=== PATIENT | male | born 1955 | race Caucasian/White ===

== ENCOUNTER 2021-03-06 09:19 | Outpatient (REF) | payer OTHER, SELFPAY ==
--- NOTE | ~2021-03-06 | XR_ITS ---
EXAMINATION: XR KNEE STANDING BILATERAL XR KNEE, RIGHT XR KNEE, LEFT CLINICAL INFORMATION: Bilateral knee pain COMPARISON: 11/16/2012 TECHNIQUE: AP standing view both knees Right knee, sunrise and lateral views Left knee, sunrise and lateral views FINDINGS: AP standing view: There are marginal osteophytes at the degenerated medial and lateral tibiofemoral compartments of both knees. Chondrocalcinosis of the lateral meniscus of the right knee. On the right, there is chronic, severe loss of the medial tibiofemoral joint space with genu varus deformity. At the left knee, there is worsening, now severe loss of the medial joint space with genu varus deformity. Right knee: No fracture, subluxation or joint effusion. There are marginal osteophytes of the chronically degenerated patellofemoral compartment. Left knee: No fracture, subluxation or joint effusion. There are marginal osteophytes of the chronically degenerated patellofemoral compartment. XR/XR knee standing BI IMPRESSION: Tricompartment osteoarthritis of both knees. The osteoarthritis is worst at the medial tibiofemoral compartments where there is severe loss of the joint space and bilateral genu varus deformity. The medial joint space narrowing of the left knee has worsened compared to 11/16/2012.
--- NOTE | ~2021-03-06 | XR_ITS ---
EXAMINATION: XR KNEE STANDING BILATERAL XR KNEE, RIGHT XR KNEE, LEFT CLINICAL INFORMATION: Bilateral knee pain COMPARISON: 11/16/2012 TECHNIQUE: AP standing view both knees Right knee, sunrise and lateral views Left knee, sunrise and lateral views FINDINGS: AP standing view: There are marginal osteophytes at the degenerated medial and lateral tibiofemoral compartments of both knees. Chondrocalcinosis of the lateral meniscus of the right knee. On the right, there is chronic, severe loss of the medial tibiofemoral joint space with genu varus deformity. At the left knee, there is worsening, now severe loss of the medial joint space with genu varus deformity. Right knee: No fracture, subluxation or joint effusion. There are marginal osteophytes of the chronically degenerated patellofemoral compartment. Left knee: No fracture, subluxation or joint effusion. There are marginal osteophytes of the chronically degenerated patellofemoral compartment. XR/XR knee LT 2V IMPRESSION: Tricompartment osteoarthritis of both knees. The osteoarthritis is worst at the medial tibiofemoral compartments where there is severe loss of the joint space and bilateral genu varus deformity. The medial joint space narrowing of the left knee has worsened compared to 11/16/2012.
--- NOTE | ~2021-03-06 | XR_ITS ---
EXAMINATION: XR KNEE STANDING BILATERAL XR KNEE, RIGHT XR KNEE, LEFT CLINICAL INFORMATION: Bilateral knee pain COMPARISON: 11/16/2012 TECHNIQUE: AP standing view both knees Right knee, sunrise and lateral views Left knee, sunrise and lateral views FINDINGS: AP standing view: There are marginal osteophytes at the degenerated medial and lateral tibiofemoral compartments of both knees. Chondrocalcinosis of the lateral meniscus of the right knee. On the right, there is chronic, severe loss of the medial tibiofemoral joint space with genu varus deformity. At the left knee, there is worsening, now severe loss of the medial joint space with genu varus deformity. Right knee: No fracture, subluxation or joint effusion. There are marginal osteophytes of the chronically degenerated patellofemoral compartment. Left knee: No fracture, subluxation or joint effusion. There are marginal osteophytes of the chronically degenerated patellofemoral compartment. XR/XR knee RT 2V IMPRESSION: Tricompartment osteoarthritis of both knees. The osteoarthritis is worst at the medial tibiofemoral compartments where there is severe loss of the joint space and bilateral genu varus deformity. The medial joint space narrowing of the left knee has worsened compared to 11/16/2012.
== END 2021-03-06 09:20 | disposition home or self-care (01) ==
LOC: HO.HOSX 09:19
PROVIDERS: Visit Provider Orthopaedic Surgery
DX: M17.0 Bilateral primary osteoarthritis of knee (principal)
CPT/HCPCS: 73560; 73565; 99202

== ENCOUNTER 2021-03-06 10:16 | Outpatient (REF) | payer OTHER, SELFPAY ==
[2021-03-06 10:41] LABS: MANUAL DIFF FLAG NO
[2021-03-06 10:49] LABS: Basophils Percent Auto 0.9 % (0-2); Eosinophils Absolute Auto 0.1 X10*3/uL (0.0-0.4); Eosinophils Percent Auto 2.1 % (0-4); Hematocrit 42.5 % (42-52); Hemoglobin 14.4 g/dl (14.0-18.0); Imm Gran Abs Auto 0.01 X10*3/uL (0.00-0.03); Imm Gran Pct Auto 0.2 % (0.0-0.4); Lymphocytes Absolute Auto 1.1 X10*3/uL (1.2-4.9); Mean Corpuscular HGB Conc 33.9 g/dl (31.0-36.0); Mean Corpuscular Volume 88.5 fL (80-98); Monocytes Absolute Auto 0.5 X10*3/uL (0.1-1.2); Neutrophils Absolute Auto 2.7 X10*3/uL (2.0-8.3); Neutrophils Percent Auto 61.8 % (45-73); Platelet Count 217 X10*3/uL (160-400); Red Cell Distribution Width 13.5 % (11.0-16.0); White Blood Count 4.4 X10*3/uL (4.8-10.8)
[2021-03-06 11:11] LABS: Alanine Aminotransferase 20 U/L (0-40); Alkaline Phosphatase 64 U/L (39-117); Anion Gap 10 (12-20); Aspartate Amino Transferase 18 U/L (5-37); Bilirubin Total 0.5 mg/dL (0.0-1.0); Blood Urea Nitrogen 14 mg/dL (9-16); Carbon Dioxide 26 mmol/L (22-29); Chloride 108 mmol/L (96-108); Cholesterol 177 mg/dL; Estimated Glomerular Filt Rate > 60; Glucose Fasting 104 mg/dL (60-99); HDL Cholesterol 46 mg/dL; LDL Cholesterol Calculated 112 mg/dl; Potassium 4.2 mmol/L (3.3-5.1); Sodium 140 mmol/L (135-145); Total Protein 6.5 g/dL (6.5-8.0); Triglycerides 99 mg/dL
== END 2021-03-06 10:17 | disposition home or self-care (01) ==
LOC: HO.LAB 10:16
PROVIDERS: PCP Internal Medicine; Visit Provider Internal Medicine
DX: Z00.00 Encounter for general adult medical examination without abnormal findings (principal); E11.9 Type 2 diabetes mellitus without complications
CPT/HCPCS: 36415; 80053; 80061; 85025

== ENCOUNTER 2022-02-22 08:50 | Outpatient (REF) | payer OTHER, SELFPAY ==
[2022-02-22 09:18] LABS: MANUAL DIFF FLAG NO
[2022-02-22 09:27] LABS: Basophils Percent Auto 0.8 % (0-2); Eosinophils Absolute Auto 0.1 X10*3/uL (0.0-0.4); Eosinophils Percent Auto 2.2 % (0-4); Hematocrit 45.6 % (42.0-52.0); Hemoglobin 15.3 g/dl (14.0-18.0); Imm Gran Abs Auto 0.01 X10*3/uL (0.00-0.03); Imm Gran Pct Auto 0.2 % (0.0-0.4); Lymphocytes Percent Auto 21.2 % (20-40); Mean Corpuscular HGB Conc 33.6 g/dl (31.0-36.0); Mean Corpuscular Hemoglobin 29.8 pg (27.0-33.0); Mean Corpuscular Volume 88.7 fL (80.0-98.0); Mean Platelet Volume 9.4 fL (9.4-12.4); Monocytes Absolute Auto 0.5 X10*3/uL (0.1-1.2); Monocytes Percent Auto 9.2 % (2-11); Neutrophils Absolute Auto 3.3 x10*3/uL (2.0-8.3); Neutrophils Percent Auto 66.4 % (45-73); Platelet Count 237 X10*3/uL (160-400); Red Blood Count 5.14 X10*6/uL (4.60-5.80); Red Cell Distribution Width 13.4 % (11.0-16.0); White Blood Count 4.9 X10*3/uL (4.8-10.8)
[2022-02-22 09:52] LABS: Alanine Aminotransferase 21 U/L (0-40); Albumin Level 4.3 g/dL (3.5-5.0); Alkaline Phosphatase 61 U/L (39-117); Anion Gap 10 (12-20); Aspartate Amino Transferase 22 U/L (5-37); Bilirubin Total 0.6 mg/dL (0.0-1.0); Blood Urea Nitrogen 14 mg/dL (9-16); Calcium 8.9 mg/dL (8.4-10.2); Carbon Dioxide 28 mmol/L (22-29); Chloride 105 mmol/L (96-108); Cholesterol 208 mg/dL; Estimated Glomerular Filt Rate > 60; Glucose Fasting 111 mg/dL (60-99); HDL Cholesterol 48 mg/dL; LDL Cholesterol Calculated 140 mg/dl; Potassium 4.3 mmol/L (3.3-5.1); Sodium 139 mmol/L (135-145); Total Protein 6.9 g/dL (6.5-8.0); Triglycerides 104 mg/dL
== END 2022-02-22 08:51 | disposition home or self-care (01) ==
LOC: HO.LAB 08:50
PROVIDERS: PCP Internal Medicine; Visit Provider Internal Medicine
DX: Z13.0 Encounter for screening for diseases of the blood and blood-forming organs and certain disorders involving the immune mechanism (principal); I10 Essential (primary) hypertension; E78.5 Hyperlipidemia, unspecified
CPT/HCPCS: 36415; 80053; 80061; 85025

== ENCOUNTER 2022-10-13 09:13 | Outpatient (REF) | payer MEDICARE, SELFPAY ==
--- NOTE | ~2022-10-13 | XR_ITS ---
EXAMINATION: XR BILATERAL KNEE CLINICAL INFORMATION: Pain in bilateral knee. COMPARISON: None. TECHNIQUE: 2 views of each knee. FINDINGS: LEFT KNEE: There is loss of medial and patellofemoral compartment joint space with superior patellar spurring. Mild chondrocalcinosis of medial compartment is noted. No loose bodies, acute fracture or dislocation is seen. No abnormal suprapatellar joint effusion seen. RIGHT KNEE: There is severe loss of medial and patellofemoral compartment joint space with moderate periarticular spurring. There is chondrocalcinosis of medial and lateral meniscus. Mild suprapatellar spurring seen. No joint effusion or loose body seen. XR/XR knee LT 2V IMPRESSION: 1. Degenerative arthritic changes of medial and patellofemoral compartment of both knees. No visible acute fracture or dislocation seen. 2. There is chondrocalcinosis of the medial and lateral meniscus right knee and medial meniscus left knee. No loose bodies or joint effusion seen.
--- NOTE | ~2022-10-13 | XR_ITS ---
EXAMINATION: XR BILATERAL KNEE CLINICAL INFORMATION: Pain in bilateral knee. COMPARISON: None. TECHNIQUE: 2 views of each knee. FINDINGS: LEFT KNEE: There is loss of medial and patellofemoral compartment joint space with superior patellar spurring. Mild chondrocalcinosis of medial compartment is noted. No loose bodies, acute fracture or dislocation is seen. No abnormal suprapatellar joint effusion seen. RIGHT KNEE: There is severe loss of medial and patellofemoral compartment joint space with moderate periarticular spurring. There is chondrocalcinosis of medial and lateral meniscus. Mild suprapatellar spurring seen. No joint effusion or loose body seen. XR/XR knee RT 2V IMPRESSION: 1. Degenerative arthritic changes of medial and patellofemoral compartment of both knees. No visible acute fracture or dislocation seen. 2. There is chondrocalcinosis of the medial and lateral meniscus right knee and medial meniscus left knee. No loose bodies or joint effusion seen.
== END 2022-10-13 09:14 | disposition home or self-care (01) ==
LOC: HO.XRAY 09:13
PROVIDERS: PCP Internal Medicine; Visit Provider Internal Medicine
DX: M25.561 Pain in right knee (principal); M25.562 Pain in left knee
CPT/HCPCS: 73560

== ENCOUNTER 2023-03-17 09:57 | Outpatient (AMB) | payer MEDICARE, SELFPAY ==
[2023-03-17 09:58] VITALS: BP 138/88; PULSE 60; O2SAT 99; BMI 32.7
--- NOTE | 2023-03-17 09:58 | AM.OFFVISMDC ---
Intake Vital Signs 03/17/23 09:58 Height 5 ft 7 in Weight 209 lb BMI 32.7 BP 138/88 Blood Pressure Location Lt brachial Position Sitting Pulse 60 Pulse Source Pulse Oximeter Temp Source Skin Pulse Oximetry (%) 99 Oxygen Delivery Method Room Air Intake Visit Reasons: AWV Intake Note: Patient is here for an Annual Wellness Visit. 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 Mother No problems noted. Social History Housing: House Alcohol intake: never Patient Tobacco Use Status: Never used Tobacco e-Cigarette/Vaping Use: Never Used Second Hand Smoke Exposure: No service: No Current occupational status: employed Cognitive needs: No Hearing needs: No Vision needs: Yes (reading glasses) Questionnaire Medicare Wellness Checkup [age] What gender do you identify with?: male During the past 4 weeks, how much have you been bothered by emotional problems such as feeling anxious, depressed, irritable, sad or downhearted, and blue?: not at all During the past 4 weeks, has your physical & emotional health limited your social activities with family, friends, neighbors, or groups?: not at all During the past 4 weeks, how much bodily pain have you generally had?: no pain During the past 4 weeks, was someone available to help you if you needed & wanted help?: yes, as much as I wanted During the past 4 weeks, what was the hardest physical activity you could do for at least 2 minutes?: very heavy Can you get to places out of walking distance without help? (For eg., can you travel alone on buses, taxis or drive your car?): Yes Can you go shopping for groceries or clothes without someone's help?: Yes Can you prepare your own meals?: Yes Can you do your housework without help?: Yes Because of any health problems, do you need the help of another person with your personal care needs such as eating, bathing, dressing or getting around the house?: No Can you handle your own money without help?: Yes During the past 4 weeks, how would you rate your health in general?: excellent During the past 4 weeks how have things been going for you?: very well; could hardly better Are you having difficulties driving your car?: yes, often Do you always fasten your seat belt when you are in a car?: yes, usually During past 4 weeks, have you been bothered by the following: never: Falling or dizzy when standing up, Sexual problems?, Trouble eating well?, Teeth or denture problems?, Problems using the telephone? and Tiredness or fatigue? Have you fallen 2 or more times in the past year?: No Are you afraid of falling?: No Are you a smoker?: no During the past 4 weeks, how many drinks of wine, beer, or other alcoholic beverages did you have?: no alcohol at all Do you exercise for about 20 minutes 3 or more times a week?: yes, all the time Have you been given information to help with the following?: yes: Hazards in your house that might hurt you? and yes: Keeping track of your medications? How often do you have trouble taking medicines the way you have been told to take them?: I always take medicine as prescribed How confident are you that you can control & manage most of your health problems?: very confident What is your race?: or origin or descent Mini Mental State Exam (MMSE) Orientation What is the (year) (season) (date) (day) (month)?: year, season, date, day and month Where are we (state) (county) (town or city) (hospital) (floor)?: state, county, town or city, hospital/clinic and floor Registration Name of 3 unrelated objects clearly and slowly, then ask patient to repeat all 3 of them. (1st repeat determines score. Make sure they can repeat all three): object 1, object 2 and object 3 Attention & Calculation (CHOOSE ONE) Ask pt to begin with 100 & count backward by 7. Stop after 5 repeats. If pt cannot ask them to spell the word WORLD backward.: 79 Spell WORLD backwards (DLROW): 5 letters Recall Ask patient to repeat the 3 items from question #3.: object 1, object 2 and object 3 Score Score: 22 Activity of Daily Living Bathing - sponge bath, tub bath or shower: receives no assistance (gets in/out by self, if usual bathing means Dressing - getting clothes from closets & drawers, including inner/outer garments & fasteners.: gets clothes & gets completely dressed without help Toileting - going to the 'toilet room' for urine/bowel elimination & cleaning self/arranging clothes: goes to toilet room, cleans self, arranges clothes without help Transfer: moves in & out of bed and chair without help (may use support object) Continence: controls urination/bowel movements completely by self Feeding: feeds self without help Total Score: 0 Information obtained from: patient Using telephone: independent Traveling: independent Shopping: independent Preparing meals: independent Housework: independent Taking medicine: independent Managing money: independent PHQ-9 Over the last 2 weeks, how often have you been bothered by any of the following problems? 1. Little interest or pleasure in doing things: not at all 2. Feeling down, depressed, or hopeless: not at all 3. Trouble falling or staying asleep, or sleeping too much: not at all 4. Feeling tired or having little energy: not at all 5. Poor appetite or overeating: not at all 6. Feeling bad about yourself - or that you are a failure or have let yourself or your family down: not at all 7. Trouble concentrating on things, such as reading the newspaper or watching television: not at all 8. Moving or speaking so slowly that other people could have noticed. Or the opposite - being so fidgety or restless that you have been moving around a lot more than usual: not at all 9. Thoughts that you would be better off or of hurting yourself in some way: not at all Total score: 0 Depression Screening Interpretation: Negative 07874 - PHQ-9 Billing: Yes Source: Developed by Drs. Chet Bradshaw, Mariza Wilhelm, Diaz Rubio and colleagues, with an educational clayton from [employer]. SERGIO-7 AMB Questionnaire SERGIO-7 Date SERGIO - 7 assessed: 10/13/22 Source: Developed by Drs. Chet Bradshaw, Mariza Wilhelm, Diaz Rubio and colleagues, with an educational clayton from [employer]. Thrive Questionnaire Date Thrive assessed: 10/13/22 Review of Systems Const Denies chills, Denies fatigue, Denies headache(s) and Denies weight loss Eyes Denies change in vision, Denies diplopia and Denies eye pain ENT Reports Normal hearing present, Denies vertigo, Denies dizziness, Denies headache(s) and Denies nasal discharge Card Denies chest pain, Denies rapid heart rate and Denies dyspnea on exertion Resp Denies chest congestion, Denies cough, Denies pain with cough and Denies dyspnea on exertion GI Denies abdominal pain, Denies hematochezia and Denies change in bowel habits Musc Denies myalgias, Denies arthralgias and Denies joint swelling Skin/Breast Denies lesions and Denies unusual bruising Neuro Reports Normal hearing present, Denies vertigo, Denies dizziness, Denies headache(s) and Denies focal weakness Endo Denies fatigue Physical Exam Vital Signs: Last Vital Signs Pulse 60 03/17/23 09:58 BP 138/88 03/17/23 09:58 Pulse Ox 99 03/17/23 09:58 Oxygen Delivery Method Room Air 03/17/23 09:58 BMI result Body Mass Index 32.7 Neuro Cranial nerves: Yes Normal hearing present Assessment & Plan Assessment & Plan (1) Encounter for initial annual wellness visit (AWV) in Medicare patient: Comment: Michael Code(s): Z00.00 - Encounter for general adult medical examination without abnormal findings Orders: Orders Comprehensive [place]. Panel Fast Today N28.9 - Disorder of kidney and ureter, unspecified Lipid Panel Today E78.5 - Hyperlipidemia, unspecified Thyroid Stimulating Hormone Today E03.9 - Hypothyroidism, unspecified Complete Blood Count Auto Diff Today D64.9 - Anemia, unspecified Quality Reporting (2019) Fall Risk Screening ([facility] 139) Last assessed Fall Risk: 03/17/23 Fall risk assessment: No Falls in past year Depression/Bipolar (159/160/161/177) PHQ-9: Total score: 0 Coding Level of Care Code Medicare First (G0438) Diagnoses Encounter for initial annual wellness visit (AWV) in Medicare patient Z00.00 CPT Codes Advance Care Planning - Advance Care Planning discussion: On file, no changes ([id number]) Advance Care Planning Advance Care Planning discussion: On file, no changes Forms completed: Health Care Proxy
== END 2023-03-17 10:25 | disposition home or self-care (01) ==
LOC: HO.HMGH 09:57
PROVIDERS: PCP Internal Medicine; Visit Provider Internal Medicine
DX: Z00.00 Encounter for general adult medical examination without abnormal findings (principal)
CPT/HCPCS: 99499

== ENCOUNTER 2023-04-15 09:37 | Outpatient (AMB) | payer MEDICARE, SELFPAY ==
[2023-04-15 09:38] VITALS: BP 132/70; PULSE 63; O2SAT 97; BMI 32.6
--- NOTE | 2023-04-15 09:38 | MHC.PC.OV ---
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 Accompanied by: Self / Same As Patient Allergies No Known Allergies Allergy (Verified 04/15/23 09:39) Medication List - Last Reconciled 04/15/23 by Hernan Reyna MD loratadine 10 mg PO DAILY PRN meclizine 25 mg PO QID PRN sildenafil (Viagra) 50 mg PO DAILY PRN tadalafil (Cialis) 5 mg PO DAILY PRN Tobacco use date assessed: 10/13/22 Fall risk assessment: No Falls in past year Last assessed Fall Risk: 04/15/23 Dental Screening Dental Screen Date: 04/15/23 Did you have a dental visit in the last 12 months?: Yes Did you have a dental problem in the last 6 months where you did not have access to dental care?: No Was dental information given to patient?: Patient has dentist HPI Annual Physical HPI Details allergic rhinitis and ED; stb;e PFSH Surgical History H/O hemorrhoidectomy Family History Father No problems noted. Mother No problems noted. Social History Housing: House Alcohol intake: never Patient Tobacco Use Status: Never used Tobacco e-Cigarette/Vaping Use: Never Used Second Hand Smoke Exposure: No service: No Current occupational status: employed Cognitive needs: No Hearing needs: No Vision needs: Yes (reading glasses) Questionnaire PHQ-9 Over the last 2 weeks, how often have you been bothered by any of the following problems? 1. Little interest or pleasure in doing things: not at all 2. Feeling down, depressed, or hopeless: not at all 3. Trouble falling or staying asleep, or sleeping too much: not at all 4. Feeling tired or having little energy: not at all 5. Poor appetite or overeating: not at all 6. Feeling bad about yourself - or that you are a failure or have let yourself or your family down: not at all 7. Trouble concentrating on things, such as reading the newspaper or watching television: not at all 8. Moving or speaking so slowly that other people could have noticed. Or the opposite - being so fidgety or restless that you have been moving around a lot more than usual: not at all 9. Thoughts that you would be better off or of hurting yourself in some way: not at all Total score: 0 Depression Screening Interpretation: Negative 43098 - PHQ-9 Billing: Yes Source: Developed by Drs. Chet Bradshaw, Mariza Wilhelm, Diaz Rubio and colleagues, with an educational clayton from [email or web address]. Thrive Questionnaire Date Thrive assessed: 10/13/22 SERGIO-7 AMB Questionnaire SERGIO-7 Date SERGIO - 7 assessed: 10/13/22 Source: Developed by Drs. Chet Bradshaw, Mariza Wilhelm, Diaz Rubio and colleagues, with an educational clayton from [email or web address]. Physical exam (Primary Care) Vital Signs: Last Vital Signs Pulse 63 04/15/23 09:38 BP 132/70 04/15/23 09:38 Pulse Ox 97 04/15/23 09:38 Oxygen Delivery Method Room Air 04/15/23 09:38 BMI result Body Mass Index 32.6 obesity BMI Assessment/Plan discussion: High BMI High, discussed plan: lifestyle, weight reduction, dietary and physical activity Tobacco/Smoking Status: Tobacco use Status Tobacco use date assessed 10/13/22 04/15/23 09:44 Patient Tobacco Use Status Never used Tobacco 04/15/23 09:44 e-Cigarette/Vaping Use Never Used 04/15/23 09:44 PHQ-9: PHQ-9 Score PHQ-9: Total score 0 04/15/23 09:44 Depression Screening Interpretation: Negative Thrive Assessment: Date of Thrive Assessment Date Thrive assessed 10/13/22 04/15/23 09:44 Const General: cooperative, healthy appearing, comfortable and no acute distress HENMT Head: Yes normocephalic and Yes atraumatic Eyes General: appearance normal, both eyes and all related structures Neck Neck: Yes full ROM and Yes no lymphadenopathy Resp Effort & Inspection: normal respiratory effort Auscultation: clear to auscultation bilaterally Percussion: percussion normal Cardio Jugular venous distension: no JVD Palpation: normal PMI Rate: regular rate Rhythm: regular rhythm Heart sounds: S1 normal heart sound present and S2 normal heart sound present GI Inspection: Yes normal to inspection Palpation (GI): No hepatosplenomegaly present Auscultation: normal bowel sounds Skin Lesions: no lesions Rashes: no rashes Extrem General: Yes no clubbing, cyanosis or edema Assessment and Plan Assessment & Plan (1) Physical exam: Code(s): Z00.00 - Encounter for general adult medical examination without abnormal findings Plan: stable (2) Obesity: Code(s): E66.9 - Obesity, unspecified Plan: as above (3) Erectile dysfunction: Code(s): N52.9 - Male erectile dysfunction, unspecified Plan: same rx (4) Allergic rhinitis due to grass pollen: Code(s): J30.1 - Allergic rhinitis due to pollen Plan: same rx Coding Level of Care Code Est Pt Prev Care >65y(94164) Diagnoses Physical exam Z00.00 Obesity E66.9 Erectile dysfunction N52.9 Allergic rhinitis due to grass pollen J30.1
== END 2023-04-15 09:55 | disposition home or self-care (01) ==
PROVIDERS: PCP Internal Medicine; Visit Provider Internal Medicine
DX: Z00.00 Encounter for general adult medical examination without abnormal findings (principal); E66.9 Obesity, unspecified; Z68.32 Body mass index [BMI] 32.0-32.9, adult; N52.9 Male erectile dysfunction, unspecified; J30.1 Allergic rhinitis due to pollen
CPT/HCPCS: 99397

== ENCOUNTER 2023-05-18 08:11 | Outpatient (REF) | payer MEDICARE, SELFPAY | END 2023-05-18 08:12 | disposition home or self-care (01) | LOC: HO.LAB 08:11 | PROVIDERS: PCP Internal Medicine; Visit Provider Internal Medicine | DX: D64.9 Anemia, unspecified (principal); N28.9 Disorder of kidney and ureter, unspecified; E78.5 Hyperlipidemia, unspecified; E03.9 Hypothyroidism, unspecified | CPT/HCPCS: 36415; 80053; 80061; 84443; 85025 ==

== ENCOUNTER 2024-03-20 09:00 | Outpatient (AMB) | payer MEDICARE, SELFPAY ==
[2024-03-20 09:01] VITALS: BP 122/80; PULSE 59; O2SAT 99; BMI 34.0
--- NOTE | 2024-03-20 09:01 | A.OFFVIS_ITS ---
Intake Vital Signs 03/20/24 09:01 Height 5 ft 7 in Weight 217 lb BMI 34.0 BP 122/80 Blood Pressure Location Lt brachial Position Sitting Pulse 59 Pulse Source Pulse Oximeter Pulse Oximetry (%) 99 Oxygen Delivery Method Room Air Intake Visit Reasons: sawv Intake Note: Patient is here for an Annual Wellness Visit. 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 Mother No problems noted. Social History Housing: House Alcohol intake: never Patient Tobacco Use Status: Never used Tobacco e-Cigarette/Vaping Use: Never Used Second Hand Smoke Exposure: No service: No Current occupational status: employed Cognitive needs: No Hearing needs: No Vision needs: Yes (reading glasses) Questionnaire Medicare Wellness Checkup [age] 65-70 What gender do you identify with?: male During the past 4 weeks, how much have you been bothered by emotional problems such as feeling anxious, depressed, irritable, sad or downhearted, and blue?: not at all During the past 4 weeks, has your physical & emotional health limited your social activities with family, friends, neighbors, or groups?: not at all During the past 4 weeks, how much bodily pain have you generally had?: no pain During the past 4 weeks, was someone available to help you if you needed & wanted help?: yes, as much as I wanted During the past 4 weeks, what was the hardest physical activity you could do for at least 2 minutes?: very heavy Can you get to places out of walking distance without help? (For eg., can you travel alone on buses, taxis or drive your car?): Yes Can you go shopping for groceries or clothes without someone's help?: Yes Can you prepare your own meals?: Yes Can you do your housework without help?: Yes Because of any health problems, do you need the help of another person with your personal care needs such as eating, bathing, dressing or getting around the house?: No Can you handle your own money without help?: Yes During the past 4 weeks, how would you rate your health in general?: excellent During the past 4 weeks how have things been going for you?: very well; could hardly better Are you having difficulties driving your car?: yes, often Do you always fasten your seat belt when you are in a car?: yes, usually During past 4 weeks, have you been bothered by the following: never: Falling or dizzy when standing up, Sexual problems?, Trouble eating well?, Teeth or denture problems?, Problems using the telephone? and Tiredness or fatigue? Have you fallen 2 or more times in the past year?: No Are you afraid of falling?: No Are you a smoker?: no During the past 4 weeks, how many drinks of wine, beer, or other alcoholic beverages did you have?: no alcohol at all Do you exercise for about 20 minutes 3 or more times a week?: yes, all the time Have you been given information to help with the following?: yes: Hazards in your house that might hurt you? and yes: Keeping track of your medications? How often do you have trouble taking medicines the way you have been told to take them?: I always take medicine as prescribed How confident are you that you can control & manage most of your health problems?: very confident What is your race?: or origin or descent Mini Mental State Exam (MMSE) Orientation What is the (year) (season) (date) (day) (month)?: year, season, date, day and month Where are we (state) (county) (town or city) (hospital) (floor)?: state, county, town or city, hospital/clinic and floor Registration Name of 3 unrelated objects clearly and slowly, then ask patient to repeat all 3 of them. (1st repeat determines score. Make sure they can repeat all three): object 1, object 2 and object 3 Recall Ask patient to repeat the 3 items from question #3.: object 1 and object 2 Score Score: 15 Activity of Daily Living Bathing - sponge bath, tub bath or shower: receives no assistance (gets in/out by self, if usual bathing means Dressing - getting clothes from closets & drawers, including inner/outer garments & fasteners.: gets clothes & gets completely dressed without help Toileting - going to the 'toilet room' for urine/bowel elimination & cleaning self/arranging clothes: goes to toilet room, cleans self, arranges clothes without help Transfer: moves in & out of bed and chair without help (may use support object) Continence: controls urination/bowel movements completely by self Feeding: feeds self without help Total Score: 0 Information obtained from: patient Using telephone: independent Traveling: independent Shopping: independent Preparing meals: independent Housework: independent Taking medicine: independent Managing money: independent PHQ-9 Over the last 2 weeks, how often have you been bothered by any of the following problems? 1. Little interest or pleasure in doing things: not at all 2. Feeling down, depressed, or hopeless: not at all 3. Trouble falling or staying asleep, or sleeping too much: not at all 4. Feeling tired or having little energy: not at all 5. Poor appetite or overeating: not at all 6. Feeling bad about yourself - or that you are a failure or have let yourself or your family down: not at all 7. Trouble concentrating on things, such as reading the newspaper or watching television: not at all 8. Moving or speaking so slowly that other people could have noticed. Or the opposite - being so fidgety or restless that you have been moving around a lot more than usual: not at all 9. Thoughts that you would be better off or of hurting yourself in some way: not at all Total score: 0 Depression Screening Interpretation: Negative Depression Screening Done: Yes 36087 - PHQ-9 Billing: Yes Source: Developed by Drs. Chet Bradshaw, Mariza Wilhelm, Diaz Rubio and colleagues, with an educational clayton from [employer]. Review of Systems Const Denies chills, Denies fatigue, Denies headache(s) and Denies weight loss Eyes Denies change in vision, Denies diplopia and Denies eye pain ENT Reports Normal hearing present, Denies vertigo, Denies dizziness, Denies headache(s) and Denies nasal discharge Card Denies chest pain, Denies rapid heart rate and Denies dyspnea on exertion Resp Denies chest congestion, Denies cough, Denies pain with cough and Denies dyspnea on exertion GI Denies abdominal pain, Denies hematochezia and Denies change in bowel habits Musc Denies myalgias, Denies arthralgias and Denies joint swelling Skin/Breast Denies lesions and Denies unusual bruising Neuro Reports Normal hearing present, Denies vertigo, Denies dizziness, Denies headache(s) and Denies focal weakness Endo Denies fatigue Physical Exam Vital Signs: Last Vital Signs Pulse 59 03/20/24 09:01 BP 122/80 03/20/24 09:01 Pulse Ox 99 03/20/24 09:01 Oxygen Delivery Method Room Air 03/20/24 09:01 BMI result Body Mass Index 34.0 Neuro Cranial nerves: Yes Normal hearing present Assessment & Plan Assessment & Plan (1) Encounter for subsequent annual wellness visit (AWV) in Medicare patient: Code(s): Z00.00 - Encounter for general adult medical examination without abnormal findings Plan: rhomberg and whisper tests normal Quality Reporting (2019) Depression/Bipolar (159/160/161/177) PHQ-9: Total score: 0 Coding Level of Care Code Medicare Subsequent (G0439) Diagnoses Encounter for subsequent annual wellness visit (AWV) in Medicare patient Z00.00 CPT Codes Advance Care Planning - Advance Care Planning discussion: On file, no changes ([id number]) Advance Care Planning Advance Care Planning discussion: On file, no changes Forms completed: Health Care Proxy
== END 2024-03-20 09:27 | disposition home or self-care (01) ==
PROVIDERS: PCP Internal Medicine; Visit Provider Internal Medicine
DX: Z00.00 Encounter for general adult medical examination without abnormal findings (principal)
CPT/HCPCS: 1123F; G0439

== ENCOUNTER 2024-08-13 15:19 | Outpatient (AMB) | payer MEDICARE, SELFPAY ==
[2024-08-13 16:03] VITALS: BP 138/80; PULSE 77; O2SAT 98
--- NOTE | 2024-08-13 16:03 | MHC.OFFWIV ---
Intake Vital Signs 08/13/24 16:03 Weight 222 lb BP 138/80 Blood Pressure Location Lt brachial Position Sitting Pulse 77 Pulse Source Pulse Oximeter Pulse Oximetry (%) 98 Oxygen Delivery Method Room Air Intake Visit Reasons: EP fell in tub sat, back/chest/head pain,spasms. Intake Note: Patient here for lower left side of back painful after falling in tub on tuesday. Patient Tobacco Use Status: Never used Tobacco Allergies No Known Allergies Allergy (Verified 08/13/24 16:05) Do you need a note to return to daycare/school/sports/work: No PFSH Surgical History H/O hemorrhoidectomy Family History Father No problems noted. Mother No problems noted. Social History Housing: House Alcohol intake: never Patient Tobacco Use Status: Never used Tobacco e-Cigarette/Vaping Use: Never Used Second Hand Smoke Exposure: No service: No Current occupational status: employed Cognitive needs: No Hearing needs: No Vision needs: Yes (reading glasses) Physical Exam Vital Signs: Last Vital Signs Pulse 77 08/13/24 16:03 BP 138/80 08/13/24 16:03 Pulse Ox 98 08/13/24 16:03 Oxygen Delivery Method Room Air 08/13/24 16:03 Assessment & Plan Assessment & Plan (1) Lower thoracic back pain: Code(s): M54.6 - Pain in thoracic spine Plan: History of Present Illness The patient is a 68-year-old male presenting with musculoskeletal pain following a fall. The incident occurred on Tuesday morning when the patient slipped in the bathtub after bending over to retrieve a bar of soap. Upon falling, the patient's head struck the edge of the tub, causing a sudden onset of pain radiating down his back. He reports experiencing sharp pain predominantly on the left side, which intensifies with deep breaths and radiates to his chest. The patient did not seek immediate medical attention at the hospital. Since the fall, he has been managing the pain with ibuprofen and Tylenol, although the sharp pain persists. The patient describes the pain as coming on particularly during breathing and bending movements. He reports no significant bruising or visible injury at the site. The patient has a history of experiencing severe falls and relates a high level of body awareness to determine serious injuries, which he did not sense in this instance. 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 - The patient is no longer in full-time employment but engages in small jobs. - Recent home safety modification included the installation of a bathtub mat to prevent future falls. Review of Systems - Musculoskeletal: Reports localized sharp back pain, intensified by movement and deep breathing. - Respiratory: Denies difficulty breathing outside of pain-related sharpness. Physical Exam General: Appearance normal, both eyes and all related structures Nutritional Appearance: Well nourished Orientation/consciousness: Patient oriented x3 Limitations: Pain and discomfort when bending over and breathing Head: Normal to inspection Neck: Normal visual inspection Chest: Pain on breathing, possibly due to muscle spasm or bruised muscles Respiratory: Pain on breathing, possibly due to muscle spasm or bruised muscles Neurology: Patient oriented x3 Results Plan - Prescribe an anti-inflammatory agent to address inflammation at the site of injury. - Prescribe a muscle relaxant to alleviate muscle spasm. - Discontinue current use of ibuprofen and Tylenol for pain management and instead use prescribed medications. - Encourage the continuation of vitamin and supplement use. Patient was informed and verbally consented to the use of an ambient scribe for clinic note documentation during this visit. Discussion Notes During the visit, I discussed the probable diagnosis of muscle strain or possible rib injury, which could include a minor fracture or muscle spasm resulting in pain upon deep breathing. I emphasized the importance of using the prescribed anti-inflammatory and muscle relaxant for more effective pain management as opposed to [id number] medications previously used. I reassured the patient that the additional medication will not interfere with his current supplements. We talked about the placement of a non-slip mat in his bathtub as an effective future fall prevention measure. I confirmed prescription details for his choice of pharmacy and informed him of potential side effects of medications prescribed. I did not discuss alternative treatments beyond what was mentioned. Patient Instructions - Begin taking the prescribed anti-inflammatory and muscle relaxant medications. - Discontinue the use of ibuprofen and Tylenol while using prescribed medications. - Continue taking regular vitamins and supplements as they do not interfere with new prescriptions. - Monitor for any adverse effects from the new medications and report them immediately. - Practice caution in movements that could trigger pain or exacerbate injury. Coding Level of Care Code Est Pt Level 3 (52950) Diagnoses Lower thoracic back pain M54.6
== END 2024-08-13 16:27 | disposition home or self-care (01) ==
PROVIDERS: PCP Internal Medicine; Visit Provider Internal Medicine
DX: M54.6 Pain in thoracic spine (principal)

== ENCOUNTER → 2024-08-13 15:19 | Outpatient (BNVA) | payer MEDICARE, SELFPAY | PROVIDERS: PCP Internal Medicine; Visit Provider Internal Medicine | DX: M54.6 Pain in thoracic spine (principal) | CPT/HCPCS: 99212 ==

== ENCOUNTER 2024-08-27 12:25 | Outpatient (AMB) | payer MEDICARE, SELFPAY ==
[2024-08-27 12:26] VITALS: BP 134/80; PULSE 75; O2SAT 97; BMI 34.5
--- NOTE | 2024-08-27 12:26 | AM.OFFWIN_ITS ---
Intake Vital Signs 08/27/24 12:26 Height 5 ft 7 in Weight 220 lb BMI 34.5 BP 134/80 Blood Pressure Location Lt brachial Position Sitting Pulse 75 Pulse Source Pulse Oximeter Pulse Oximetry (%) 97 Oxygen Delivery Method Room Air Intake Visit Reasons: EP rt shoulder, swollen rt bicep, can't lift arm Intake Note: Pt is here today for a walk in visit. Pt c/o R shoulder pain. Patient Tobacco Use Status: Never used Tobacco Allergies No Known Allergies Allergy (Verified 08/27/24 12:29) HPI HPI Comments History of Present Illness Details History of Present Illness - The patient is a 68-year-old male pres enting with right shoulder pain and right biceps swelling since a work incident a month ago. - The shoulder pain started after being struck by a heavy object at work (a board) straight into the front of his right shoudler and has worsened over time. - Today, right biceps swelling occurred after minimal exertion (shoveling) and is noticeably larger than the left biceps. - The patient has a history of NSAID use for musculoskeletal issues, with recent meloxicam prescription following a fall but he hasn't used it. - Patient continues to work in [employer] but is avoiding heavy lifting. Physical Exam General: Cooperative, healthy appearing, comfortable, no acute distress and well developed Orientation: Patient oriented x3 Limitations: Right shoulder pain Head: Normal to inspection Ears: Hearing grossly normal bilaterally Nose: Normal external nose present Face and sinus: Normal facial exam Eyes: Appearance normal, both eyes and all related structures Neck: Normal visual inspection and Yes full ROM Respiratory: Normal respiratory effort and able to speak in complete sentences. Skin: No rashes or lesions noted Neuro: Patient oriented x3 Back, spine: cervical spine has no TTP, no TTP to cervical muscles, no TTP thoracic spine Extremities: Right biceps slightly swollen, worse proximally, tenderness noted to this area, full ROM but with some pain on movement notably at 75 degrees of flexion, negative lift off test, negative empty can. Right elbow full ROM, no TTP, no edema. [facility] Surgical History H/O hemorrhoidectomy Family History Father No problems noted. Mother No problems noted. Social History Housing: House Alcohol intake: never Patient Tobacco Use Status: Never used Tobacco e-Cigarette/Vaping Use: Never Used Second Hand Smoke Exposure: No service: No Current occupational status: employed Cognitive needs: No Hearing needs: No Vision needs: Yes (reading glasses) Review of Systems Const All systems reviewed & are unremarkable except as noted in HPI and below Physical Exam Vital Signs: Last Vital Signs Pulse 75 08/27/24 12:26 BP 134/80 08/27/24 12:26 Pulse Ox 97 08/27/24 12:26 Oxygen Delivery Method Room Air 08/27/24 12:26 BMI result Body Mass Index 34.5 Assessment & Plan Assessment & Plan (1) Bicipital tendonitis of right shoulder: Code(s): M75.21 - Bicipital tendinitis, right shoulder Plan: Our assessment indicates right biceps tendinitis due to the reported shoulder trauma. Initiate conservative management including rest with sling support, ice application, and NSAIDs. Voltaren gel is recommended for topical relief; avoid heavy lifting in occupational settings. A prompt orthopedic referral is arranged for further evaluation within two weeks, with expectation to wear sling appropriately to facilitate recovery, weaning off of it after 5-6 days to prevent frozen shoulder. Existing meloxicam is recommended once daily. Follow-up instructed for persistent symptoms post- therapeutic intervention. Patient was informed and verbally consented to the use of an ambient scribe for clinic note documentation during this visit. (2) Sprain, bicep: Code(s): S46.219A - Strain of muscle, fascia and tendon of other parts of biceps, unspecified arm, initial encounter Qualifiers: Encounter type: initial encounter Laterality: right Qualified Code(s): S46.211A - Strain of muscle, fascia and tendon of other parts of biceps, right arm, initial encounter Plan: as above Orders: Referrals Orthopedics Referral M75.21 - Bicipital tendinitis, right shoulder, S46.219A - Strain of muscle, fascia and tendon of other parts of biceps, unspecified arm, initial encounter Coding Level of Care Code Est Pt Level 4 (78524) Diagnoses Bicipital tendonitis of right shoulder M75.21 Strain of right biceps, initial encounter S46.211A Encounter type: initial encounter Laterality: right
== END 2024-08-27 13:26 | disposition home or self-care (01) ==
PROVIDERS: PCP Internal Medicine; Visit Provider Physician Assistant
DX: M75.21 Bicipital tendinitis, right shoulder (principal); S46.211A Strain of muscle, fascia and tendon of other parts of biceps, right arm, initial encounter

== ENCOUNTER → 2024-08-27 12:25 | Outpatient (BNVA) | payer MEDICARE, SELFPAY | PROVIDERS: PCP Internal Medicine; Visit Provider Physician Assistant | DX: M75.21 Bicipital tendinitis, right shoulder (principal); S46.211A Strain of muscle, fascia and tendon of other parts of biceps, right arm, initial encounter | CPT/HCPCS: 99212 ==

== ENCOUNTER 2025-03-22 09:06 | Outpatient (AMB) | payer MEDICARE, SELFPAY ==
[2025-03-22 09:10] VITALS: BP 126/82; PULSE 76; O2SAT 96; BMI 34.4
--- NOTE | 2025-03-22 09:10 | MHC.PC.OV ---
Vital Signs 03/22/25 09:10 Height 5 ft 7 in Weight 219 lb 6 oz BMI 34.4 BP 126/82 Blood Pressure Location Lt brachial Position Sitting Pulse 76 Pulse Source Pulse Oximeter Pulse Oximetry (%) 96 Oxygen Delivery Method Room Air Intake Visit Reasons: BRUNO Dr Reyna Angle Bender Required: No Accompanied by: Self / Same As Patient Allergies No Known Allergies Allergy (Verified 03/22/25 09:11) Tobacco use date assessed: 03/22/25 Fall risk assessment: 1 Fall in past year Last assessed Fall Risk: 03/22/25 Dental Screening Dental Screen Date: 03/22/25 Did you have a dental visit in the last 12 months?: Yes Did you have a dental problem in the last 6 months where you did not have access to dental care?: No Was dental information given to patient?: Patient has dentist HPI BRUNO Dr Reyna HPI Details Patient comes in today for his follow up visit - is transferring over from Dr. Reyna, who retired from the practice a few months ago States that he feels okay He denies any headaches or dizziness Denies any chest pains, no SOB No nausea/vomiting, no abdominal pain No change in bowel habits noted [facility] Medical History (Updated 03/22/25 @ 09:47 by Alfred Patricia MD) Obesity (BMI 30-39.9) Erectile dysfunction Bilateral primary osteoarthritis of knee Surgical History (Updated 03/22/25 @ 09:35 by Alfred Patricia MD) History of colonoscopy History of arthroplasty of both knees H/O hemorrhoidectomy Family History Father No problems noted. Mother No problems noted. Social History Housing: House Alcohol intake: never Patient Tobacco Use Status: Never used Tobacco e-Cigarette/Vaping Use: Never Used Second Hand Smoke Exposure: No service: No Current occupational status: employed Cognitive needs: No Hearing needs: No Vision needs: Yes (reading glasses) Questionnaire PHQ-9 Over the last 2 weeks, how often have you been bothered by any of the following problems? 1. Little interest or pleasure in doing things: not at all 2. Feeling down, depressed, or hopeless: not at all 3. Trouble falling or staying asleep, or sleeping too much: not at all 4. Feeling tired or having little energy: not at all 5. Poor appetite or overeating: not at all 6. Feeling bad about yourself - or that you are a failure or have let yourself or your family down: not at all 7. Trouble concentrating on things, such as reading the newspaper or watching television: not at all 8. Moving or speaking so slowly that other people could have noticed. Or the opposite - being so fidgety or restless that you have been moving around a lot more than usual: not at all 9. Thoughts that you would be better off or of hurting yourself in some way: not at all Total score: 0 Depression Screening Interpretation: Negative Depression Screening Done: Yes 01470 - PHQ-9 Billing: Yes Source: Developed by Drs. Chet Bradshaw, Mariza Wilhelm, Diaz Rubio and colleagues, with an educational clayton from [email or web address]. Thrive Questionnaire Date Thrive assessed: 03/22/25 I am a: Patient What is your living situation today?: I have a steady place to live Within the past 12 months, did the food you bought not last and you didn't have the money to get more?: Never true Within the past 12 months, did you worry whether your food would run out before you got money to buy more?: Never true Do you have trouble paying for medicines?: No Do you have trouble getting transportation to medical appointments?: No Do you have trouble paying your heating and electricity bill?: No Do you have trouble taking care of your child, family member or friend?: No Do you have trouble with day-to-day activities such as bathing, preparing meals, shopping, managing finances, etc.?: No Are you currently unemployed and looking for a job?: No Are you interested in more education?: No Please select the resources that you would like help with: None Currently or been in a relationship where the following occur: I choose not to answer THRIVE Score: 0 AUDIT C Alcohol Use Questionnaire (AUDIT-C) 1. How often do you have a drink containing alcohol?: Monthly or less 2. How many drinks containing alcohol do you have on a typical day when you are drinking?: 1 or 2 3. How often do you have six or more drinks on one occasion?: Less than monthly Total Score: 2 Score Reviewed/Action Taken: Yes SERGIO-7 AMB Questionnaire SERGIO-7 Date SERGIO - 7 assessed: 03/22/25 Feeling nervous, anxious, or on edge: 0 = Not at all Not being able to stop or control worryin = Not at all Worrying too much about different things: 0 = Not at all Trouble relaxin = Not at all Being so restless that it is hard to sit still: 0 = Not at all Becoming easily annoyed or irritable: 0 = Not at all Feeling afraid as if something awful might happen: 0 = Not at all Total SERGIO-7 score (0-4 normal; 5-9 mild; 10-14 moderate; 15-21 severe): 0 Source: Developed by Drs. Chet Bradshaw, Mariza Wilhelm, Diaz Rubio and colleagues, with an educational clayton from [email or web address]. Review of Systems Const Denies chills, Denies fatigue, Denies fever(s) and Denies headache(s) ENT Denies dysphagia, Denies dizziness, Denies otalgia, Denies headache(s), Denies neck pain, Denies odynophagia and Denies sore throat Card Denies chest pain, Denies palpitations and Denies dyspnea Resp Denies chest congestion, Denies cough and Denies dyspnea GI Denies abdominal pain, Denies constipation, Denies dysphagia, Denies heartburn, Denies diarrhea, Denies nausea, Denies odynophagia and Denies vomiting Denies difficulty urinating, Denies dysuria, Denies nocturia and Denies urinary frequency Musc Denies back pain and Denies neck pain Skin/Breast Denies rash Neuro Denies dizziness and Denies headache(s) Endo Denies fatigue and Denies palpitations Physical exam (Primary Care) Vital Signs: Last Vital Signs Pulse 76 03/22/25 09:10 BP 126/82 03/22/25 09:10 Pulse Ox 96 03/22/25 09:10 Oxygen Delivery Method Room Air 03/22/25 09:10 BMI result Body Mass Index 34.4 Tobacco/Smoking Status: Tobacco use Status Tobacco use date assessed 03/22/25 03/22/25 09:15 Patient Tobacco Use Status Never used Tobacco 03/22/25 09:15 e-Cigarette/Vaping Use Never Used 03/22/25 09:15 PHQ-9: PHQ-9 Score PHQ-9: Total score 0 03/22/25 09:15 Depression Screening Interpretation: Negative Thrive Assessment: Date of Thrive Assessment Date Thrive assessed 03/22/25 03/22/25 09:15 Currently or been in a relationship where the following occur: I choose not to answer Const General: no acute distress and alert HENMT Ears: TM's normal bilaterally and EAC's normal Throat: Yes posterior oropharynx normal and Yes tonsils normal (no TP congestion) Neck Neck: Yes supple and No lymphadenopathy Thyroid: Thyroid normal Resp Auscultation: clear to auscultation bilaterally, no rales and no wheezes Cardio Rate: regular rate Rhythm: regular rhythm Heart sounds: no murmurs GI Inspection: Yes normal to inspection Palpation (GI): Soft to palpation and nontender Auscultation: normal bowel sounds General: Yes no CVA tenderness Back/Spine/Pelvis Back: no CVA tenderness Thoracic/Lumbar Spine: No lumbar spinal tenderness Skin Rashes: no rashes Extrem General: Yes no clubbing, cyanosis or edema Coding Level of Care Code Est Pt Level 4 (41095) Diagnoses Bilateral primary osteoarthritis of knee M17.0 Erectile dysfunction, unspecified erectile dysfunction type N52.9 Erectile dysfunction type: unspecified Allergic rhinitis due to grass pollen J30.1 Obesity (BMI 30-39.9) E66.9 Additional Codes PHQ-9 - 87552 - PHQ-9 Billing: Yes ([id number]) Assessment & Plan Assessment & Plan (1) Bilateral primary osteoarthritis of knee: Code(s): M17.0 - Bilateral primary osteoarthritis of knee Category: Medical Plan: S/P bilateral total knee arthroplasty with [facility] about 2 to 3 years ago States that his knee symptoms have improved significantly with his knee replacement surgery He takes OTC meds like Tylenol or his Meloxicam Rx PRN for pain (2) Erectile dysfunction: Code(s): N52.9 - Male erectile dysfunction, unspecified Category: Medical Qualifiers: Erectile dysfunction type: unspecified Qualified Code(s): N52.9 - Male erectile dysfunction, unspecified Plan: Continue Sildenafil 50 mg PRN (3) Allergic rhinitis due to grass pollen: Code(s): J30.1 - Allergic rhinitis due to pollen Category: Medical Plan: Continue Loratadine 10 mg QD PRN (4) Obesity (BMI 30-39.9): Code(s): E66.9 - Obesity, unspecified Category: Medical Plan: Reinforced diet/exercise as tolerated/lose weight Plan To return in 6 months for his annual physical examination IF insurance will cover annual PE; otherwise, will just return for a regular follow up visit Patient is advised to get his follow up labs done prior to coming in for his next appointment as it has been a couple of years now since he's had his labs done Orders: Orders UA CC w/rflx Micro + Cult 6 Months R30.0 - Dysuria Vitamin B12 and Folate 6 Months E53.8 - Deficiency of other specified B group vitamins Prostate Specific Antigen 6 Months N40.0 - Benign prostatic hyperplasia without lower urinary tract symptoms Complete Blood Count Auto Diff 6 Months D64.9 - Anemia, unspecified Comprehensive [place]. Panel Fast 6 Months E78.00 - Pure hypercholesterolemia, unspecified Lipid Panel 6 Months E78.00 - Pure hypercholesterolemia, unspecified TSH reflex Free T4 6 Months E78.00 - Pure hypercholesterolemia, unspecified Vitamin D 25-OH Total 6 Months E55.9 - Vitamin D deficiency, unspecified Hemoglobin A1c 6 Months R73.9 - Hyperglycemia, unspecified
--- OUTSIDE RECORDS SUMMARY | 2025-03-22 09:20 | XMS_ITS | Clinical Summary ---
Author Organization [facility] ity Address [address] [place] [address] Care Team Providers Care Inspector Firearms Name Role Phone Hernan Reyna MD Primary Care Provider [phone] Social History Tobacco Use Types Packs/Day Years Used Date Smoking Tobacco: Never Assessed Sex and Gender Information Value Date Recorded Sex Assigned at Not on file Legal Sex Male 2:32 PM EST Gender Identity Not on file Sexual Orientation Not on file Plan of Treatment Health Maintenance Due Date Last Done Comments DTaP,Tdap,and Td Vaccines (1 - Tdap) 01/01/1976 Pneumococcal Vaccine: 50+ Ye ars (1 of 1 - PCV) 2006 Zoster Vaccines (1 of 2) 2006 COVID-19 Vaccine ( - 2023-2 5 season) 2024 Depression Screening 08/08/2024 Influenza Vaccine (#1) 2025 RSV Immunization Adult Patie nts (1 - 1-dose 75+ series) 01/01/2032 HIB Vaccines Aged Out No longer eligi ble based on patient's age to complete this topic HPV Vaccines Aged Out No longer eligi ble based on patient's age to complete this topic Hepatitis A Vaccines Aged Out No long er eligible based on patient's age to complete this topic Hepatitis B Vaccines Aged Out No long er eligible based on patient's age to complete this topic IPV Vaccines Aged Out No longer eligi ble based on patient's age to complete this topic MMR Vaccines Aged Out No longer eligi ble based on patient's age to complete this topic Meningococcal ACWY Vaccine Aged Out N o longer eligible based on patient's age to complete this topic Meningococcal B Vaccine Aged Out No l onger eligible based on patient's age to complete this topic RSV Immunization Patients Un emilie 20 months Aged Out No longer eligible b ased on patient's age to complete this topic Varicella Vaccines Aged Out No longer eligible based on patient's age to complete this topic Care Teams Inspector Firearms Relationship Specialty Start Date End Date Hernan Reyna MD [address] [place] [address] PCP - General Internal Medicine 03/27/21
== END 2025-03-22 09:54 | disposition home or self-care (01) ==
LOC: HO.HMCH 09:06
PROVIDERS: PCP Internal Medicine; Visit Provider Internal Medicine
DX: M17.0 Bilateral primary osteoarthritis of knee (principal); N52.9 Male erectile dysfunction, unspecified; E66.9 Obesity, unspecified; Z68.34 Body mass index [BMI] 34.0-34.9, adult; J30.1 Allergic rhinitis due to pollen

== ENCOUNTER → 2025-03-22 09:06 | Outpatient (BNVA) | payer MEDICARE, SELFPAY | PROVIDERS: PCP Internal Medicine; Visit Provider Internal Medicine | DX: M17.0 Bilateral primary osteoarthritis of knee (principal); N52.9 Male erectile dysfunction, unspecified; J30.1 Allergic rhinitis due to pollen; E66.9 Obesity, unspecified; Z68.34 Body mass index [BMI] 34.0-34.9, adult; Z71.3 Dietary counseling and surveillance | CPT/HCPCS: 96127; 99212 ==